=== PATIENT | male | born 1950 | race Two or more races ===

== ENCOUNTER 2017-09-01 05:48 | Inpatient (IN) | payer OTHER ==
[~2017-09-01] VITALS: Ht 175.3 cm; Wt 92.1 kg
[2017-09-01] VITALS (16 sets, daily range): BP systolic 84–149; BP diastolic 59–95
[~2017-09-01 05:48] MED LIST: BYSTOLIC10 MG ORAL; LOSARTAN POTASS50 MG ORAL; MULTAQ400 MG ORAL
[2017-09-01] MEDS ORDERED: ceFAZolin sod 2 GM in D5W 55 ML IVP SCH (06:00)
[2017-09-01] MEDS ORDERED: FOLIC ACID1 M1 PO (06:57)
[2017-09-01] MEDS ORDERED: PREDNISONE5 M4 PO (06:57)
[2017-09-01] MEDS ORDERED: HYDROXYCHLOROQ200 M1 PO (06:57)
[2017-09-01] MEDS ORDERED: LEFLUNOMIDE20 MG PO (06:57)
[2017-09-01] MEDS ORDERED: Vancomycin 1gm inj IVPB ONE (07:03)
[2017-09-01] MEDS ORDERED: DIGOXIN250 MCG ORAL (07:03)
[2017-09-01] MEDS ORDERED: OXYCODONE-ACET1 EAC5 ORAL (07:03)
[2017-09-01] MEDS ORDERED: ALPRAZOLAM1 M2 ORAL (07:03)
[2017-09-01] MEDS ORDERED: CRESTOR10 M1 ORAL (07:03)
[2017-09-01] MEDS ORDERED: EPLERENONE25 MG PO (07:03)
[2017-09-01] MEDS ORDERED: Thrombin 5000 units TOPIC ONE (07:03)
[2017-09-01] MEDS ORDERED: Bupivacaine w/Epi 0.5% 30ml Vial INJ ONE (07:03)
[2017-09-01] MEDS ORDERED: Bacitracin 50000 Units Vial ONE ×2 (07:04→14:51)
[2017-09-01] MEDS ORDERED: Gelfoam Absorbable 1gm powder pkt TOPIC ONE (07:04)
[2017-09-01] MEDS ORDERED: Thrombin 5000 units spray kit TOPIC ONE (07:04)
[2017-09-01] MEDS ORDERED: IRON 21/7 TABL1 EACH PO (07:06)
[2017-09-01] MEDS ORDERED: VITAMIN D400 INTLU ORAL (07:06)
[2017-09-01] MEDS ORDERED: CALCIUM600 M1 PO (07:06)
[2017-09-01] MEDS ORDERED: CENTRUM COMPLE1 EAC1 PO (07:06)
[2017-09-01] MEDS ORDERED: B COMPLEX1 EACH ORAL (07:06)
[2017-09-01] MEDS ORDERED: Labetalol 5mg/ml 20ml vial IV ONE (07:41)
[2017-09-01] MEDS ORDERED: NS Irrig 1000ml ONE (07:41)
[2017-09-01] MEDS ORDERED: Zemuron 50mg/5ml Inj IV ONE (07:41)
[2017-09-01] MEDS ORDERED: Morphine Sulfate 2mg/ml Inj ONE (07:41)
[2017-09-01] MEDS ORDERED: LR 1000ml ONE (07:41)
[2017-09-01] MEDS ORDERED: Neostigmine 1mg/ml 10ml Inj ONE (07:41)
[2017-09-01] MEDS ORDERED: Midazolam 2mg/2ml Inj ONE (07:41)
[2017-09-01] MEDS ORDERED: Hydrocortisone 100mg Inj ONE (07:41)
[2017-09-01] MEDS ORDERED: Propofol 1,000mg/ 100ml btl IV ONE (07:41)
[2017-09-01] MEDS ORDERED: Glycopyrrolate 0.2mg/ml 1ml Vial ONE (07:41)
[2017-09-01] MEDS ORDERED: Sterile Water Irrig 1000ml IRRIG ONE (07:41)
[2017-09-01] MEDS ORDERED: fentaNYL 100 mcg/2 mL IV ONE (08:00)
--- NOTE | 2017-09-01 08:08 | Anethesia Preoperative Eval ---
Anesthesia Pre-op PMH/ROS General Date of Evaluation: Sep 01, 2017 Time of Evaluation: 08:02 Anesthesiologist: Luis Alberto ASA Score: ASA 3 Mallampati Score Class I : Soft palate, uvula, fauces, pillars visible Class II: Soft palate, uvula, fauces visible Class III: Soft palate, base of uvula visible Class IV: Only hard plate visible Mallampati Classification: Class III Surgeon: Blu Diagnosis: Symptomatic lumbar spinal stenosis Surgical Procedure: L4-L5-S1 laminotomy with interbody fusion Anesthesia History: none Family History: no anesthesia problems Allergies: Coded Allergies: No Known Allergies (Unverified , 08/31/17) Medications: see eMAR Past Medical History Cardiovascular: Reports: HTN, arrhythmia - A fib. stable, Denies: CAD, VT, valve dz, other Pulmonary: Denies: asthma, COPD, JAZLYN, other Gastrointestinal/Genitourinary: Reports: GERD, Denies: CRI, ESRD, other Neurologic/Psychiatric: Reports: other - chronic pain Endocrine: Reports: steroids - Chronic steroids for RA, Denies: DM, hypothyroidism, other HEENT: Denies: cataract (L), cataract (R), glaucoma, GAMBELL (L), GAMBELL (R), other Hematology/Immune: Reports: bleeding disorder - off anticoagulants for Sx, Denies: anemia, DVT, other Musculoskeletal/Integumentary: Reports: RA, Denies: OA, DJD, DDD, edema, other Other: obesity PMH Narrative: as above PSxH Narrative: back Sx. Anesthesia Pre-op Phys. Exam Physician Exam Last Vital Signs Date Time Temp Pulse Resp B/P (MAP) Pulse Ox O2 Delivery O2 Flow Rate FiO2 09/01/17 06:41 97.0 63 17 149/95 96 Room Air Constitutional: NAD Neurologic: CN 2-12 intact Cardiovascular: no M/R/G, other - IIR Respiratory: CTA Gastrointestinal: S/NT/ND Airway Exam Mallampati Score: Class II MO: full Neck: stiff ROM: limited Teeth: missing Dentures: no upper, no lower Anesthesia Pre-op A/P Labs see chart Studies Pre-op Studies: EKG - AF Risk Assessment & Plan Assessment: ASA 3 Plan: GA with ETT prone position, neuromonitoring Status Change Before Surgery: No Pre-Antibiotics Drug: Ancef 2 gr. Given Within 1 Hr of Incision: Yes Time Given: 08:35 MAKAYLA DE LA PAZ M.D. Sep 01, 2017 08:08
--- NOTE | 2017-09-01 09:27 | Pre-Procedure Note/Attestation ---
Pre-Procedure Note/Attestation Complete Prior to Procedure Procedure Narrative: revision hardware L5s1 tlif, l45 decompression L3-5 Indications for Procedure Pre-Operative Diagnosis: sp fusion L5s1 with stenosis/instability l3-5 Attestation I attest that I discussed the nature of the procedure; its benefits; risks and complications; and alternatives (and the risks and benefits of such alternatives ), prior to the procedure, with the patient (or the patient's legal artist's representative). I attest that, if there was a reasonable possibility of needing a blood transfusion, the patient (or the patient's legal artist's representative) was given the [facility] standardized written summary, pursuant to the [place] Blood Safety Act ([place] Health and Safety Code # 1645, as amended). I attest that I re-evaluated the patient just prior to the surgery and that there has been no change in the patient's H&P, except as documented below: DEION VELÁSQUEZ Sep 01, 2017 09:27
[2017-09-01] MEDS ORDERED: Acetaminophen (Non formulary) 100 ML IV ONE (11:45)
[2017-09-01] MEDS ORDERED: LR 1000ml 1,000 ML IVLG SCH (14:43)
[2017-09-01] MEDS ORDERED: DiphenhydrAMINE 50mg/ml Inj IVP PRN ×2 (14:45→15:00)
[2017-09-01] MEDS ORDERED: fentaNYL 100 mcg/2 mL IV PRN (14:45)
[2017-09-01] MEDS ORDERED: Ketorolac 30mg Inj IV PRN (14:45)
[2017-09-01] MEDS ORDERED: PCA Education Pamphlet MISC ONE (15:00)
[2017-09-01] MEDS ORDERED: Naloxone 0.4mg/ml Inj IVP PRN (15:00)
[2017-09-01] MEDS ORDERED: Rate Change PCA 1 Each MISC PRN (15:00)
--- NOTE | 2017-09-01 15:27 | Brief Operative Note ---
Immediate Post Operative Note Operative Note Pre-op Diagnosis: sp fusion L5s1 with stenosis/instability l3-5 Procedure: L3-5 redo laminectomy, Tlif R L45, Revision hardware L4-s1 Post-op Diagnosis: same as pre-op Findings: consistent w/pre-op dx studies Surgeon: adryan Ornamental Metal Worker Helper: CALVIN weaver Anesthesiologist: chava Anesthesia: general Specimen: none Complications: none Condition: stable Fluids: 1600 Estimated Blood Loss: volume - 250 Drains: hemovac Implant(s) used?: Yes - spinal elements screws, tlif peek, and signafuse DEION VELÁSQUEZ Sep 01, 2017 15:27
[2017-09-01] MEDS ORDERED: Metoclopramide 10mg/2ml Inj IVP PRN (15:30)
[2017-09-01] MEDS ORDERED: Milk of Magnesia 30ml Ud ORAL PRN (15:30)
[2017-09-01] MEDS: Hydromorphone 0.5mg/0.5ml inj IVP PRN ×4 (16:13→16:54)
[2017-09-01] MEDS: Midazolam 2mg/2ml Inj IVP PRN ×2 (16:13→16:49)
[2017-09-01] MEDS: PCA HYDROmorphone 1mg/ml 30 ML IV PRN (16:22)
--- NOTE | 2017-09-01 16:24 | Diagnostic Imaging Report ---
Indication: Back pain Comparison: None Findings: Fluoroscopic views of the lumbar spine were obtained. Imaging showing 3 level fusion L4-S1 with bilateral pedicle screws fusion rods discectomy corpectomy and laminectomy. Impression: Intraoperative imaging
--- NOTE | 2017-09-01 17:35 | Immediate Post-Op Evaluation ---
Immediate Post-Op Evalulation Immediate Post-Op Evalulation Procedure: Revision of lumbar hardwear.L4-5-S1 laminotomy with decompression and inter Date of Evaluation: Sep 01, 2017 Time of Evaluation: 15:58 IV Fluids: 1600 Blood Products: none Estimated Blood Loss: 250 Urinary Output: 500 Blood Pressure Systolic: 105 Blood Pressure Diastolic: 54 Pulse Rate: 116 Respiratory Rate: 22 O2 Sat by Pulse Oximetry: 99 Temperature (Fahrenheit): 97.8 Pain Score (1-10): 2 Nausea: No Vomiting: No Complications none Patient Status: reacts, patent, extubated, none Hydration Status: adequate MAKAYLA DE LA PAZ M.D. Sep 01, 2017 17:35
[2017-09-01] MEDS: Pericolace tab ORAL SCH (18:00)
[2017-09-01] MEDS: Docusate 100mg cap ORAL SCH (18:00)
--- NOTE | 2017-09-01 18:45 | Cardiology Progress Note ---
Assessment/Plan Assessment/Plan The patient is seen and examined, full consult note is dictated. Objective Last 24 Hour Vital Signs Date Time Temp Pulse Resp B/P (MAP) Pulse Ox O2 Delivery O2 Flow Rate FiO2 09/01/17 18:33 98.8 105 22 104/68 96 Nasal Cannula 2.0 09/01/17 17:35 116 22 99 09/01/17 17:20 111 11 90/70 100 Nasal Cannula 3.0 09/01/17 17:05 108 11 114/87 100 Nasal Cannula 3.0 09/01/17 17:05 11 09/01/17 16:54 111 18 107/72 100 Nasal Cannula 3.0 09/01/17 16:50 18 09/01/17 16:44 115 19 112/71 100 Simple Mask 6.0 09/01/17 16:35 19 09/01/17 16:32 122 12 107/65 100 Simple Mask 6.0 09/01/17 16:22 16 09/01/17 16:20 112 16 100/60 100 Simple Mask 6.0 09/01/17 16:12 116 16 105/82 100 Simple Mask 6.0 09/01/17 16:02 128 15 97/66 100 Simple Mask 6.0 09/01/17 15:57 124 22 111/62 100 Simple Mask 6.0 09/01/17 15:52 97.9 127 27 84/59 100 Simple Mask 6.0 09/01/17 06:41 97.0 63 17 149/95 96 Room Air GABRIELA PEACE Sep 01, 2017 18:45
[2017-09-01] MEDS ORDERED: Metoprolol Succinate XL 25mg tab ORAL SCH (19:00)
[2017-09-01] MEDS: PCA shift volume MISC SCH (19:00)
[2017-09-01] MEDS: D5 1/2NS 1,000 ML IV SCH (20:24)
[2017-09-01] MEDS: ceFAZolin sod 1 GM in D5W 55 ML IV SCH (20:24)
--- NOTE | 2017-09-01 21:08 | History & Physical ---
History and Physical History & Physicial Orders reviewed with the RN. Full Dictation in progress Ana Espitia MD Sep 01, 2017 21:08
[2017-09-01 21:36] LABS: BASOPHILS % (AUTO) 1.9 % (0.0-2.0); EOSINOPHILS % (AUTO) 0.1 % (0.0-3.0); LYMPHOCYTES % (AUTO) 8.5 % (20.0-45.0); MEAN CORPUSCULAR HEMOGLOBIN 30.3 PG (27.0-31.0); MEAN CORPUSCULAR HGB CONC 31.4 G/DL (32.0-36.0); MEAN CORPUSCULAR VOLUME 96 FL (80-99); MONOCYTES % (AUTO) 10.4 % (1.0-10.0); NEUTROPHILS % (AUTO) 79.1 % (45.0-75.0); PLATELET COUNT 115 K/UL (150-450); RED BLOOD COUNT 4.67 M/UL (4.70-6.10); RED CELL DISTRIBUTION WIDTH 13.3 % (11.6-14.8); WHITE BLOOD COUNT 15.4 K/UL (4.8-10.8)
[2017-09-01 21:52] LABS: TROPONIN I < 0.30 ng/mL (<=0.30)
[2017-09-01 21:55] LABS: ALANINE AMINOTRANSFERASE 33 U/L (3-41); ALBUMIN/GLOBULIN RATIO 1.2 (1.0-2.7); ANION GAP 14 (5-15); ASPARTATE AMINO TRANSFERASE 42 U/L (5-40); CALCIUM 8.2 mg/dL (8.6-10.2); CARBON DIOXIDE 23 mEQ/L (20-30); CHLORIDE 102 mEQ/L (98-107); GLOMERULAR FILTRATION RATE > 60 mL/min (>60); HEMOLYSIS 33; POTASSIUM 4.4 mEQ/L (3.4-4.9); SODIUM 139 mEQ/L (135-145); TOTAL PROTEIN 5.5 g/dL (6.6-8.7)
[2017-09-02] VITALS: BP 145/79
[2017-09-02] MEDS: Losartan 50mg tab ORAL SCH ×3 (00:15→21:59)
--- NOTE | 2017-09-02 00:31 | Operative Note - Dictated ---
DATE OF OPERATION: 09/01/2017 SURGEON: Ankit Hurt M.D. BUS PERSON DISHWASHER: Rita Silva ANESTHESIOLOGIST: Rodolfo Sahu M.D. ANESTHESIA TYPE: General endotracheal anesthesia. PREOPERATIVE DIAGNOSES: 1. Status post spinal fusion, anterior and posterior L5-S1. 2. Severe spinal stenosis L4-L5 and to a lesser extent L3-L4. 3. Instability at L4-L5 with broad-based disk herniation. 4. Adjacent level arthrosis L4-L5 and to a lesser extent L3-L4. POSTOPERATIVE DIAGNOSES: 1. Status post spinal fusion, anterior and posterior L5-S1. 2. Severe spinal stenosis L4-L5 and to a lesser extent L3-L4. 3. Instability at L4-L5 with broad-based disk herniation. 4. Adjacent level arthrosis L4-L5 and to a lesser extent L3-L4. PROCEDURES: 1. Complete laminectomy of L3, L4, and superior half of L5 (redo status post prior laminectomy L5 partial). 2. Removal of hardware L5-S1. 3. Complete facetectomy L4-L5 right side and placement of interbody fusion device (TLIF) L4-L5. 4. Placement of structural graft/PEEK cage L4-L5 through a right-sided foraminal approach. 5. Posterior spinal segmental fixation and placement of hardware pedicle screws (spinal elements) L4, L5, and S1 bilaterally. 6. Use of local autograft for fusion as well as use of Signafuse. 7. Use of operating microscope. 8. Neurodiagnostic monitoring. 9. Pedicle screw stimulation. OPERATIVE INDICATIONS: The patient is a very pleasant gentleman with fairly significant and intractable back pain with radiation down right worse than left lower extremity. MRIs confirmed severe spinal stenosis L4-L5 and L3-L4. Surgical intervention was recommended in the form of extension of instrumentation and fusion at L4-L5 and decompression at L3 through L5. RISK NOTE: The patient was explained in detail risks and benefits of surgery to include, but not be limited to those of bleeding, infection, damage to nerves, vessels, tendons, anesthetic risk, allergic reaction, aspiration, and possibly . The patient understood and wished to proceed. OPERATIVE PROCEDURE IN DETAIL: The patient was taken to the operating suite. After general endotracheal anesthesia was obtained, Becker catheter was placed. The patient was turned prone onto a radiolucent table. Back was prepped and draped in usual sterile fashion. Fluoroscopically, the levels were marked. At this point, the prior incision was infiltrated with Marcaine with epinephrine. Incision was carried out from L3 through S1. Extensive scarring was encountered. Scar tissue was mobilized at the L5-S1 level. A L3-L4 and L4-L5 subperiosteal dissection was carried out. Prior hardware was identified. Multiple attempts were made to remove the locking knots securing the micah to the screws. The locking knot at L5 had cold welded and resulted in fracture of the screwdrivers within the locking cap screw. This occurred at both L5 level. The locking cap on S1 on the right side was removed. It was also cold welded on the left at S1. We had no choice at this point to use a high-speed drill (carbide tip) and amputate the rods between L5 and S1. At this point, with a locking Vise-Director Of Partner [employer] wrench, I was able to back out the screws at L5 and S1 bilaterally. At this point, operating microscope was brought into place. Complete laminectomy was performed at L4 and superior one-third of the L5 using standard technique by drilling out the lamina and removing the ligamentum flavum and scar tissue in a piecemeal fashion. Once the decompression at L4-L5 was complete, a complete facetectomy was performed on the right side. The disk herniation was identified. There was a disk fragment, which was removed in a piecemeal fashion. The nerve roots were gently retracted medially. A scalpel was used to incise the disk posterolaterally and with the use of multiple stefano, we were able to remove the disk material at L4-L5. An 11 mm spacer was chosen after the complete diskectomy and endplate preparation was completed using angled curettes and pituitary. At this juncture, the disk space was prepared. I placed approximately 4 mL of Signafuse as well as local autograft bone from the laminectomy that was performed. The spinal elements curved TLIF cage was then also packed with Signafuse and delivered into the disk space under fluoroscopic guidance. At this point, I proceeded to replace the screws at L5. There was a partial fracture of the pedicle at the right L5 and therefore, I elected to replace the screws at L5 and S1. This was performed bilaterally. Copious irrigation was performed. Pedicle screw stimulation demonstrated good impedance above 20. The pedicle screws at L4 were also placed using standard technique and using standard anatomic landmarks by drilling, tapping, and applying the appropriate sized 6.5 mm screws. Once all screws were placed and tested with neurodiagnostic monitoring, the appropriate sized rods were applied and locking knots were applied. This was all torqued to the appropriate level. At this point, we went back under the microscope and completed the laminectomy of L3. Additional bone graft was placed posterolaterally at L4, L5, and S1. Care was taken to avoid any debris or bone graft material into the laminectomy or TLIF site. At this point, copious irrigation was performed. A medium-size Hemovac drain was placed deep to the fascia and fascia was repaired using #1 Vicryl subcutaneous closure using 2-0 Vicryl. Dermabond and sterile dressing was applied. At the time of this dictation, the patient was awaiting extubation. [facility] Rocio Hurt DR: CHIRAG JOB#: [id number] CC: BRETT
[2017-09-02] MEDS: ceFAZolin sod 1 GM in D5W 55 ML IV SCH ×2 (03:50→12:37)
[2017-09-02 04:00] VITALS: BP 142/86
[2017-09-02] MEDS: D5 1/2NS 1,000 ML IV SCH ×2 (06:23→17:46)
--- NOTE | 2017-09-02 06:53 | 48 Hour Post Anesthesia Eval ---
Post Anesthesia Evaluation Procedure: Revision of lumbar hardwear.L4-5-S1 laminotomy with decompression and inter Date of Evaluation: Sep 02, 2017 Time of Evaluation: 06:31 Blood Pressure Systolic: 142 0: 86 Pulse Rate: 82 Respiratory Rate: 18 Temperature (Fahrenheit): 98.2 O2 Sat by Pulse Oximetry: 100 Airway: patent Nausea: No Vomiting: No Pain Intensity: 3 Hydration Status: adequate Cardiopulmonary Status: Stable Mental Status/LOC: patient returned to baseline Follow-up Care/Observations: 0 Post-Anesthesia Complications: 0 Follow-up care needed: N/A Jerry Lutz MD Sep 02, 2017 06:53
[2017-09-02] MEDS: PCA shift volume MISC SCH ×2 (08:00→19:00)
[2017-09-02 08:41] VITALS: BP 149/90
--- NOTE | 2017-09-02 08:47 | Consultation ---
DATE OF CONSULTATION: 09/01/2017 CARDIOLOGY CONSULTATION REFERRING PHYSICIAN: Ana Espitia M.D. Reason For Consultation: Management of atrial fibrillation, postoperative. History Of Present Illness: The patient is a very pleasant 67-year-old gentleman, who underwent lumbar spine surgical repair by Dr. Hurt on 09/01/2017. The patient has history of permanent atrial fibrillation, on Bystolic, digoxin, and Eliquis as well as history of hypertension as well as rheumatoid arthritis, on steroid therapy as well as leflunomide. The patient also was on Multaq for possibly maintenance of sinus rhythm. A 12-lead electrocardiogram prior to surgery showed atrial fibrillation with controlled ventricular response. In the postoperative period, the patient complains of being thirsty. bus driver/monitor reveals atrial fibrillation with rapid ventricular response. The patient denies any prior history of coronary artery disease or congestive heart failure. PAST MEDICAL HISTORY: 1. Atrial fibrillation. 2. Hypertension. 3. Rheumatoid arthritis. Past Surgical History: Status post lumbar spine surgical repair, postoperative day #0. Medications: List of medications including Bystolic 20 mg p.o. once daily, digoxin 0.25 mg p.o. daily, Eliquis 5 mg p.o. twice daily, folic acid 1 mg p.o. daily, leflunomide 20 mg p.o. daily, losartan 50 mg p.o. q.12 h., Multaq 400 mg p.o. daily, and rosuvastatin 10 mg p.o. nightly. There was also Plaquenil and prednisone, the doses of which are unknown. ALLERGIES: No known drug allergies. Review Of Systems: HEENT: Denies any headache, diplopia, or blurry vision. Constitutional: Complains of pain in the postoperative period, complaining of being thirsty. Denies any fever, chills, or night sweats. Cardiovascular: Denies any chest pain, shortness breath, PND, orthopnea, or leg swelling. Pulmonary: Denies any cough, hemoptysis, or wheezing. Gastrointestinal: Denies any nausea, vomiting, diarrhea, constipation, abdominal pain, or GI bleed. Genitourinary: Denies any hematuria, dysuria, or incontinence. Neurological: Denies any motor dysfunction, sensory deficit, numbness, or altered speech. PHYSICAL EXAMINATION: Vital Signs: Blood pressure is 104/68, heart rate of 105, respirations of 22, O2 saturation of 96% on nasal cannula two liters, and temperature 98.9 degrees Fahrenheit. General: The patient is a very pleasant 67-year-old gentleman, in the postoperative period, in no apparent respiratory distress. HEENT: Periorbital edema. Otherwise, pupils are equal, round, and reactive to light and accommodation. Extraocular muscles intact. Neck: No jugular venous distention. No carotid bruit. Carotid upstrokes 2+ bilaterally. CVS: Normal S1 and S2. Irregularly irregular rhythm. Tachycardic. No murmurs, gallops, or rubs. PMI is at fourth intercostal space in the midclavicular line. LUNGS: Clear to auscultation bilaterally. Abdomen: Soft, nontender, and nondistended. No hepatosplenomegaly. Positive bowel sounds. EXTREMITIES: No evidence of edema, clubbing, or cyanosis. Laboratory and diagnostic Data: Laboratory findings, prior to surgery, the patient had some blood test, which is as follows. Glucose is 97, 16, creatinine 0.87, sodium 144, potassium is 4.8, chloride 105, bicarbonate 31, and calcium is 9.5. WBC is 12.2, hemoglobin of 16.4, hematocrit of 49.3, and platelet count 144,000. A 12-lead electrocardiogram, atrial fibrillation with heart rate of 73. This ECG prior to surgery does show left axis deviation, poor R wave progression suggestive of possible old anteroseptal WI. Chest x-ray showed cardiomegaly without cardiac decompensation or other acute process. Assessment And Plan: The patient is a very pleasant 67-year-old gentleman, seen in Cardiology consultation at the request of Dr. Espitia. 1. Atrial fibrillation, it is not clear whether this is paroxysmal versus permanent. The patient was on Multaq, however, currently in atrial fibrillation. For rate control, the patient was also on Bystolic and digoxin. 2. I would like to resume Bystolic 10 mg p.o. daily, an up titrated dose based on the patient's blood pressure response and heart rate response. 3. Anticoagulation is contraindicated in the very early postoperative period for this kind of surgeries. 4. We will resume anticoagulation once it is safe to do so. A 12-lead electrocardiogram will be done for this postoperative period. 5. History of hypertension. Currently, the patient's blood pressure is borderline low in the postoperative period. This could be because of the narcotic use. 6. We will continue to monitor the patient's blood pressure in the next 24 to 48 hours and make recommendations accordingly. 7. History of rheumatoid arthritis. 8. History of lumbar spine surgery, postoperative day #0. I would like to thank, Dr. Espitia, for allowing me to participate in the care of this patient. Asif Ratliff M.D. DR: Gato JOB#: [id number] CC:
[2017-09-02] MEDS: Docusate 100mg cap ORAL SCH (09:00)
[2017-09-02] MEDS: Pericolace tab ORAL SCH ×3 (09:27→17:59)
--- NOTE | 2017-09-02 09:44 | Orthopedic Spine Progress Note ---
Ortho Spine - Progress Note Subjective Symptoms: c/o post-op back pain, improved - as compared to pre-op Objective Vital Signs: Last 24 Hour Vital Signs Date Time Temp Pulse Resp B/P (MAP) Pulse Ox O2 Delivery O2 Flow Rate FiO2 09/02/17 09:26 149/90 09/02/17 09:26 93 09/02/17 08:41 98.1 93 18 149/90 96 Nasal Cannula 2.0 09/02/17 06:53 82 18 100 09/02/17 04:00 91 09/02/17 04:00 18 09/02/17 04:00 98.2 82 20 142/86 100 Nasal Cannula 2.0 09/02/17 00:15 145/79 09/02/17 00:00 92 09/02/17 00:00 18 09/02/17 00:00 98.4 98 22 145/79 97 Room Air 09/01/17 22:51 98.1 96 20 145/83 Room Air 09/01/17 20:00 98.2 103 20 125/72 97 Room Air 09/01/17 20:00 18 09/01/17 20:00 145 09/01/17 20:00 98.2 20 125/72 Nasal Cannula 2.0 09/01/17 18:40 18 09/01/17 18:33 98.8 105 22 104/68 96 Nasal Cannula 2.0 09/01/17 18:25 15 09/01/17 18:05 18 09/01/17 17:50 98.9 113 15 104/64 100 Nasal Cannula 3.0 09/01/17 17:35 116 25 94/62 100 Nasal Cannula 3.0 09/01/17 17:35 18 09/01/17 17:35 116 22 99 09/01/17 17:20 111 11 90/70 100 Nasal Cannula 3.0 09/01/17 17:20 98.8 09/01/17 17:05 108 11 114/87 100 Nasal Cannula 3.0 09/01/17 17:05 11 09/01/17 16:54 111 18 107/72 100 Nasal Cannula 3.0 09/01/17 16:52 98.8 09/01/17 16:50 18 09/01/17 16:44 115 19 112/71 100 Simple Mask 6.0 09/01/17 16:35 19 09/01/17 16:32 122 12 107/65 100 Simple Mask 6.0 09/01/17 16:22 16 09/01/17 16:20 112 16 100/60 100 Simple Mask 6.0 09/01/17 16:12 116 16 105/82 100 Simple Mask 6.0 09/01/17 16:02 128 15 97/66 100 Simple Mask 6.0 09/01/17 15:57 124 22 111/62 100 Simple Mask 6.0 09/01/17 15:52 97.9 127 27 84/59 100 Simple Mask 6.0 I&O: Intake and Output 09/02/17 09/03/17 19:00 07:00 Intake Total 100 ml Balance 100 ml IV Total 100 ml Wound: clean Drains: hemovac Neuro Status: abnormal - rle weaker than LLE, but better than before surgery Assessment Procedure Performed: L3-5 redo laminectomy, Tlif R L45, Revision hardware L4-s1 Plan Plan: PT, pain management, continue antibiotics, continue drain Additional Comments: hold anticooagulation DEION VELÁSQUEZ Sep 02, 2017 09:44
[2017-09-02 10:15] LABS: BASOPHILS % (AUTO) 1.4 % (0.0-2.0); EOSINOPHILS % (AUTO) 1.1 % (0.0-3.0); LYMPHOCYTES % (AUTO) 12.6 % (20.0-45.0); MEAN CORPUSCULAR HEMOGLOBIN 32.2 PG (27.0-31.0); MEAN CORPUSCULAR HGB CONC 33.8 G/DL (32.0-36.0); MEAN CORPUSCULAR VOLUME 95 FL (80-99); MEAN PLATELET VOLUME 11.5 FL (6.5-10.1); MONOCYTES % (AUTO) 8.5 % (1.0-10.0); NEUTROPHILS % (AUTO) 76.4 % (45.0-75.0); PLATELET COUNT 135 K/UL (150-450); RED BLOOD COUNT 4.62 M/UL (4.70-6.10); RED CELL DISTRIBUTION WIDTH 13.2 % (11.6-14.8); WHITE BLOOD COUNT 13.7 K/UL (4.8-10.8)
[2017-09-02] MEDS ORDERED: HYDROmorphone 1mg/ml Carpuject SUBQ PRN (10:30)
[2017-09-02] MEDS ORDERED: ALPRAZolam 0.5mg tab ORAL PRN (10:30)
[2017-09-02 12:00] VITALS: BP 115/62
--- NOTE | 2017-09-02 14:06 | General Progress Note ---
Assessment/Plan Status: stable Assessment/Plan 1- Lumbar spondylosis, S/P surgery 2- Afib 3- HTN 4- pain managemt 5- anxiety/Depression Plan: discussed with Cardiology, Dr Ratliff agree with current management. hold anticoagulation for now Subjective ROS Limited/Unobtainable: No Allergies: Coded Allergies: No Known Allergies (Unverified , 08/31/17) Objective Last 24 Hour Vital Signs Date Time Temp Pulse Resp B/P (MAP) Pulse Ox O2 Delivery O2 Flow Rate FiO2 09/02/17 09:26 149/90 09/02/17 09:26 93 09/02/17 08:41 98.1 93 18 149/90 96 Nasal Cannula 2.0 09/02/17 06:53 82 18 100 09/02/17 04:00 91 09/02/17 04:00 18 09/02/17 04:00 98.2 82 20 142/86 100 Nasal Cannula 2.0 09/02/17 00:15 145/79 09/02/17 00:00 92 09/02/17 00:00 18 09/02/17 00:00 98.4 98 22 145/79 97 Room Air 09/01/17 22:51 98.1 96 20 145/83 Room Air 09/01/17 20:00 98.2 103 20 125/72 97 Room Air 09/01/17 20:00 18 09/01/17 20:00 145 09/01/17 20:00 98.2 20 125/72 Nasal Cannula 2.0 09/01/17 18:40 18 09/01/17 18:33 98.8 105 22 104/68 96 Nasal Cannula 2.0 09/01/17 18:25 15 09/01/17 18:05 18 09/01/17 17:50 98.9 113 15 104/64 100 Nasal Cannula 3.0 09/01/17 17:35 116 25 94/62 100 Nasal Cannula 3.0 09/01/17 17:35 18 09/01/17 17:35 116 22 99 09/01/17 17:20 111 11 90/70 100 Nasal Cannula 3.0 09/01/17 17:20 98.8 09/01/17 17:05 108 11 114/87 100 Nasal Cannula 3.0 09/01/17 17:05 11 09/01/17 16:54 111 18 107/72 100 Nasal Cannula 3.0 09/01/17 16:52 98.8 09/01/17 16:50 18 09/01/17 16:44 115 19 112/71 100 Simple Mask 6.0 09/01/17 16:35 19 09/01/17 16:32 122 12 107/65 100 Simple Mask 6.0 09/01/17 16:22 16 09/01/17 16:20 112 16 100/60 100 Simple Mask 6.0 09/01/17 16:12 116 16 105/82 100 Simple Mask 6.0 09/01/17 16:02 128 15 97/66 100 Simple Mask 6.0 09/01/17 15:57 124 22 111/62 100 Simple Mask 6.0 09/01/17 15:52 97.9 127 27 84/59 100 Simple Mask 6.0 Intake and Output 09/02/17 09/03/17 19:00 07:00 Intake Total 100 ml Output Total 80 ml Balance 20 ml IV Total 100 ml Drainage Total 80 ml Laboratory Tests 09/01/17 21:20: White Blood Count 15.4H, Red Blood Count 4.67L, Hemoglobin 14.1L, Hematocrit 45.0, Mean Corpuscular Volume 96, Mean Corpuscular Hemoglobin 30.3, Mean Corpuscular Hemoglobin Concent 31.4L, Red Cell Distribution Width 13.3, Platelet Count 115L, Mean Platelet Volume 11.0H, Neutrophils (%) (Auto) 79.1H, Lymphocytes (%) (Auto) 8.5L, Monocytes (%) (Auto) 10.4H, Eosinophils (%) (Auto) 0.1, Basophils (%) (Auto) 1.9, Sodium Level 139, Potassium Level 4.4, Chloride Level 102, Carbon Dioxide Level 23, Anion Gap 14, Blood Urea Nitrogen 18, Creatinine 1.0, Estimat Glomerular Filtration Rate > 60, Glucose Level 140H, Calcium Level 8.2L, Total Bilirubin 0.6, Aspartate Amino Transf (AST/SGOT) 42H, Alanine Aminotransferase (ALT/SGPT) 33, Alkaline Phosphatase 70, Troponin I < 0.30, Total Protein 5.5L, Albumin 3.0L, Globulin 2.5, Albumin/Globulin Ratio 1.2 09/02/17 10:00: White Blood Count 13.7H, Red Blood Count 4.62L, Hemoglobin 14.9, Hematocrit 44.0 , Mean Corpuscular Volume 95, Mean Corpuscular Hemoglobin 32.2H, Mean Corpuscular Hemoglobin Concent 33.8, Red Cell Distribution Width 13.2, Platelet Count 135L, Mean Platelet Volume 11.5H, Neutrophils (%) (Auto) 76.4H, Lymphocytes (%) (Auto) 12.6L, Monocytes (%) (Auto) 8.5, Eosinophils (%) (Auto) 1.1, Basophils (%) (Auto) 1.4 Height (Feet): 5 Height (Inches): 9.00 Weight (Pounds): 203 General Appearance: no apparent distress EENT: PERRL/EOMI Neck: supple Cardiovascular: normal rate Respiratory/Chest: chest wall non-tender Abdomen: soft Extremities: non-tender Neurologic: steel checker II-XII grossly normal Ana Espitia MD Sep 02, 2017 14:06
[2017-09-02 15:51] VITALS: BP 145/78
[2017-09-02 20:00] VITALS: BP 142/76
[2017-09-02] MEDS: PCA HYDROmorphone 1mg/ml 30 ML IV PRN (21:26)
--- NOTE | 2017-09-02 23:16 | Cardiology Progress Note ---
Assessment/Plan Assessment/Plan 1. Atrial fibrillation, continue Bystolic and digoxin for rate control, anticoagulation still on hold. 2. History of hypertension, up-titrate Bystolic to keep BP <140/90 mmHg. 3. History of rheumatoid arthritis. 4 History of lumbar spine surgery, postoperative day #1. Subjective Subjective Atrial fibrillation at 79. Denies chest pain or SOB. Objective Last 24 Hour Vital Signs Date Time Temp Pulse Resp B/P (MAP) Pulse Ox O2 Delivery O2 Flow Rate FiO2 09/02/17 21:59 142/76 09/02/17 20:00 99.1 85 18 142/76 96 Room Air 09/02/17 20:00 18 09/02/17 16:21 97.9 18 96 Nasal Cannula 2.0 09/02/17 16:00 95 09/02/17 15:51 20 145/78 09/02/17 15:13 20 09/02/17 12:00 98.2 87 20 115/62 95 Nasal Cannula 2.0 09/02/17 11:47 79 09/02/17 09:26 149/90 09/02/17 09:26 93 09/02/17 08:41 98.1 93 18 149/90 96 Nasal Cannula 2.0 09/02/17 08:08 88 09/02/17 08:00 20 09/02/17 06:53 82 18 100 09/02/17 04:00 91 09/02/17 04:00 18 09/02/17 04:00 98.2 82 20 142/86 100 Nasal Cannula 2.0 09/02/17 00:15 145/79 09/02/17 00:00 92 09/02/17 00:00 18 09/02/17 00:00 98.4 98 22 145/79 97 Room Air Intake and Output 09/02/17 09/03/17 19:00 07:00 Intake Total 1655 ml Output Total 620 ml Balance 1035 ml Intake Oral 600 ml IV Total 1055 ml Output Urine Total 500 ml Drainage Total 120 ml Laboratory Tests Test 09/02/17 10:00 White Blood Count 13.7 K/UL (4.8-10.8) H Red Blood Count 4.62 M/UL (4.70-6.10) L Hemoglobin 14.9 G/DL (14.2-18.0) Hematocrit 44.0 % (42.0-52.0) Mean Corpuscular Volume 95 FL (80-99) Mean Corpuscular Hemoglobin 32.2 PG (27.0-31.0) H Mean Corpuscular Hemoglobin Concent 33.8 G/DL (32.0-36.0) Red Cell Distribution Width 13.2 % (11.6-14.8) Platelet Count 135 K/UL (150-450) L Mean Platelet Volume 11.5 FL (6.5-10.1) H Neutrophils (%) (Auto) 76.4 % (45.0-75.0) H Lymphocytes (%) (Auto) 12.6 % (20.0-45.0) L Monocytes (%) (Auto) 8.5 % (1.0-10.0) Eosinophils (%) (Auto) 1.1 % (0.0-3.0) Basophils (%) (Auto) 1.4 % (0.0-2.0) Objective HEENT: Periorbital edema. Otherwise, pupils are equal, round, and reactive to light and accommodation. Extraocular muscles intact. Neck: No jugular venous distention. No carotid bruit. Carotid upstrokes 2+ bilaterally. CVS: Normal S1 and S2. Irregularly irregular rhythm. Tachycardic. No murmurs, gallops, or rubs. PMI is at fourth intercostal space in the midclavicular line. LUNGS: Clear to auscultation bilaterally. Abdomen: Soft, nontender, and nondistended. No hepatosplenomegaly. Positive bowel sounds. EXTREMITIES: No evidence of edema, clubbing, or cyanosis. GABRIELA PEACE Sep 02, 2017 23:16
[2017-09-03] VITALS: BP 139/66
--- NOTE | 2017-09-03 | History and Physical Report ---
DATE OF ADMISSION: 09/01/2017 SOURCE OF INFORMATION: Patient and EMR. History Of Present Illness: The patient is a 67-year-old white male with a history of lumbar spondylosis status post surgery. At the time of evaluation, the patient denies any chest pain, any shortness of breath, any abnormal bleeding. The patient has [id number] pain in the back. Past Medical History: Anxiety, atrial fibrillation, hypertension, hyperlipidemia. PAST SURGICAL HISTORY: Status post lumbar spine surgery. Hospital Medications: Including but not limited to Bystolic, digoxin 0.25 mg, Eliquis liquid 5 mg p.o. b.i.d., folic acid 1 mg. ALLERGIES: NKDA. Social History: The patient denies history of illicit drug abuse or alcohol abuse. FAMILY HISTORY: Reviewed and noncontributory. PHYSICAL EXAMINATION: Vital Signs: Blood pressure 140/80, temperature 98.2 degrees, pulse oximetry 98% on room air, pulse rate 95-110, respiratory rate 18. HEAD AND NECK: Normocephalic. CHEST: Clear to auscultation. HEART: S1 and S2. Regular rate and rhythm. ABDOMEN: Soft. No organomegaly. Musculoskeletal: Decreased range of motion in the lower back status post surgery. NEUROLOGY: The patient is awake, alert, and oriented x3. Laboratory Data: Laboratory dated 09/01/2017 shows WBC 16.4, hemoglobin 14.1, platelets 115,000. Sodium 139, potassium 4.4, BUN 18, and creatinine 1, glucose 140. AST 42, ALT 33. ASSESSMENT AND PLAN: 1. Lumbar spondylosis and prior surgery, status post revision surgery. 2. Atrial fibrillation, controlled rate. Continue with the current medications. 3. Hypertension, fairly controlled. 4. Anxiety and depression. 5. Gastrointestinal and deep vein thrombosis prophylaxis. Plan Of Care: We will continue with the home medications. Continue with the current pain management. Cardiology will be consulted. Dr. Phillips and Dr. Benites, thanks for giving me the opportunity to participate in this patient's care. Ana Espitia M.D. DR: Cricket JOB#: [id number] CC: BRETT
[2017-09-03] MEDS: D5 1/2NS 1,000 ML IV SCH ×3 (02:06→21:03)
[2017-09-03 04:00] VITALS: BP 128/74
[2017-09-03 05:11] LABS: BASOPHILS % (AUTO) 1.4 % (0.0-2.0); EOSINOPHILS % (AUTO) 0.9 % (0.0-3.0); LYMPHOCYTES % (AUTO) 11.5 % (20.0-45.0); MEAN CORPUSCULAR HEMOGLOBIN 32.1 PG (27.0-31.0); MEAN CORPUSCULAR HGB CONC 34.3 G/DL (32.0-36.0); MEAN CORPUSCULAR VOLUME 93 FL (80-99); MEAN PLATELET VOLUME 10.7 FL (6.5-10.1); MONOCYTES % (AUTO) 8.4 % (1.0-10.0); NEUTROPHILS % (AUTO) 77.8 % (45.0-75.0); PLATELET COUNT 118 K/UL (150-450); RED BLOOD COUNT 4.09 M/UL (4.70-6.10); RED CELL DISTRIBUTION WIDTH 12.8 % (11.6-14.8); WHITE BLOOD COUNT 13.5 K/UL (4.8-10.8)
[2017-09-03 05:28] LABS: ANION GAP 10 (5-15); CALCIUM 8.2 mg/dL (8.6-10.2); CARBON DIOXIDE 26 mEQ/L (20-30); CHLORIDE 102 mEQ/L (98-107); CREATININE 0.5 mg/dL (0.7-1.2); GLOMERULAR FILTRATION RATE > 60 mL/min (>60); HEMOLYSIS 12; POTASSIUM 3.4 mEQ/L (3.4-4.9); SODIUM 138 mEQ/L (135-145)
[2017-09-03] MEDS: PCA shift volume MISC SCH (07:00)
[2017-09-03 08:00] VITALS: BP 130/77
--- NOTE | 2017-09-03 08:58 | General Progress Note ---
Assessment/Plan Assessment/Plan 1. Lumbar spondylosis and prior surgery, status post revision surgery. 2. Atrial fibrillation, controlled rate. Continue with the current medications. 3. Hypertension, fairly controlled. 4. Anxiety and depression. 5. Leukocytosis: likely reactive, post op. no evidence of active infection 5. Gastrointestinal and deep vein thrombosis prophylaxis. Plan: hold anticoagulation for now Current surgical management per Dr Phillips Subjective ROS Limited/Unobtainable: No HEENT: Reports: no symptoms Cardiovascular: Reports: no symptoms Allergies: Coded Allergies: No Known Allergies (Unverified , 08/31/17) Objective Last 24 Hour Vital Signs Date Time Temp Pulse Resp B/P (MAP) Pulse Ox O2 Delivery O2 Flow Rate FiO2 09/03/17 08:00 98.1 97 20 130/77 97 Room Air 09/03/17 07:57 20 09/03/17 04:00 20 09/03/17 04:00 99.9 90 20 128/74 98 Room Air 09/03/17 04:00 89 09/03/17 00:00 94 09/03/17 00:00 98.2 94 20 139/66 97 Room Air 09/03/17 00:00 20 09/02/17 21:59 142/76 09/02/17 20:00 99.1 85 18 142/76 96 Room Air 09/02/17 20:00 18 09/02/17 20:00 75 09/02/17 16:21 97.9 18 96 Nasal Cannula 2.0 09/02/17 16:00 95 09/02/17 15:51 20 145/78 09/02/17 15:13 20 09/02/17 12:00 98.2 87 20 115/62 95 Nasal Cannula 2.0 09/02/17 11:47 79 09/02/17 09:26 149/90 09/02/17 09:26 93 Laboratory Tests 09/02/17 10:00: White Blood Count 13.7H, Red Blood Count 4.62L, Hemoglobin 14.9, Hematocrit 44.0 , Mean Corpuscular Volume 95, Mean Corpuscular Hemoglobin 32.2H, Mean Corpuscular Hemoglobin Concent 33.8, Red Cell Distribution Width 13.2, Platelet Count 135L, Mean Platelet Volume 11.5H, Neutrophils (%) (Auto) 76.4H, Lymphocytes (%) (Auto) 12.6L, Monocytes (%) (Auto) 8.5, Eosinophils (%) (Auto) 1.1, Basophils (%) (Auto) 1.4 09/03/17 04:45: White Blood Count 13.5H, Red Blood Count 4.09L, Hemoglobin 13.1L, Hematocrit 38.3L, Mean Corpuscular Volume 93, Mean Corpuscular Hemoglobin 32.1H, Mean Corpuscular Hemoglobin Concent 34.3, Red Cell Distribution Width 12.8, Platelet Count 118L, Mean Platelet Volume 10.7H, Neutrophils (%) (Auto) 77.8H, Lymphocytes (%) (Auto) 11.5L, Monocytes (%) (Auto) 8.4, Eosinophils (%) (Auto) 0.9, Basophils (%) (Auto) 1.4, Sodium Level 138, Potassium Level 3.4, Chloride Level 102, Carbon Dioxide Level 26, Anion Gap 10, Blood Urea Nitrogen 8, Creatinine 0.5L, Estimat Glomerular Filtration Rate > 60, Glucose Level 132H, Calcium Level 8.2L Height (Feet): 5 Height (Inches): 9.00 Weight (Pounds): 203 General Appearance: no apparent distress EENT: PERRL/EOMI Neck: supple Cardiovascular: normal rate Respiratory/Chest: lungs clear Abdomen: soft Extremities: other - Limied ROM of lumbar spine, post op. Neurologic: oriented x 3 Ana Espitia MD Sep 03, 2017 08:58
[2017-09-03] MEDS: Losartan 50mg tab ORAL SCH ×2 (09:02→21:03)
[2017-09-03 12:00] VITALS: BP 126/70
[2017-09-03] MEDS ORDERED: Norco 5mg/325mg tab ORAL PRN (15:00)
[2017-09-03] MEDS ORDERED: Norco 7.5mg/325mg tab ORAL PRN ×2 (15:00)
[2017-09-03 16:00] VITALS: BP 145/82
--- NOTE | 2017-09-03 16:17 | Orthopedic Spine Progress Note ---
Ortho Spine - Progress Note Subjective Symptoms: c/o post-op back pain, improved - as compared to pre-op Objective Vital Signs: Last 24 Hour Vital Signs Date Time Temp Pulse Resp B/P (MAP) Pulse Ox O2 Delivery O2 Flow Rate FiO2 09/03/17 14:50 20 09/03/17 12:00 79 09/03/17 12:00 20 09/03/17 12:00 98.3 67 20 126/70 98 Room Air 09/03/17 09:02 130/77 09/03/17 09:00 97 09/03/17 08:00 90 09/03/17 08:00 98.1 97 20 130/77 97 Room Air 09/03/17 07:57 20 09/03/17 04:00 20 09/03/17 04:00 99.9 90 20 128/74 98 Room Air 09/03/17 04:00 89 09/03/17 00:00 94 09/03/17 00:00 98.2 94 20 139/66 97 Room Air 09/03/17 00:00 20 09/02/17 21:59 142/76 09/02/17 20:00 99.1 85 18 142/76 96 Room Air 09/02/17 20:00 18 09/02/17 20:00 75 09/02/17 16:21 97.9 18 96 Nasal Cannula 2.0 I&O: Intake and Output 09/03/17 09/04/17 19:00 07:00 Intake Total 400 ml Balance 400 ml IV Total 400 ml Wound: clean, intact Drains: hemovac Neuro Status: stable Assessment Procedure Performed: L3-5 redo laminectomy, Tlif R L45, Revision hardware L4-s1 Plan Plan: PT, d/c antibiotics, d/c drain, discharge plan DEION VELÁSQUEZ Sep 03, 2017 16:17
[2017-09-03] MEDS: Pericolace tab ORAL SCH (17:30)
[2017-09-03] MEDS: oxyCODONE 5mg IR tab ORAL PRN ×2 (17:31→21:02)
[2017-09-03 20:00] VITALS: BP 143/96
--- NOTE | 2017-09-03 22:12 | Cardiology Progress Note ---
Assessment/Plan Assessment/Plan 1. Atrial fibrillation, continue Bystolic and digoxin for rate control, anticoagulation still on hold. 2. History of hypertension, up-titrate Bystolic to keep BP <140/90 mmHg. 3. History of rheumatoid arthritis. 4 History of lumbar spine surgery, postoperative day #2. Subjective Subjective Atrial fibrillation at 76.. Denies chest pain or SOB. Objective Last 24 Hour Vital Signs Date Time Temp Pulse Resp B/P (MAP) Pulse Ox O2 Delivery O2 Flow Rate FiO2 09/03/17 21:03 143/96 09/03/17 20:00 97.7 74 21 143/96 96 Room Air 09/03/17 16:00 77 09/03/17 16:00 98.0 98 20 145/82 98 Room Air 09/03/17 14:50 20 09/03/17 12:00 79 09/03/17 12:00 20 09/03/17 12:00 98.3 67 20 126/70 98 Room Air 09/03/17 09:02 130/77 09/03/17 09:00 97 09/03/17 08:00 90 09/03/17 08:00 98.1 97 20 130/77 97 Room Air 09/03/17 07:57 20 09/03/17 04:00 20 09/03/17 04:00 99.9 90 20 128/74 98 Room Air 09/03/17 04:00 89 09/03/17 00:00 94 09/03/17 00:00 98.2 94 20 139/66 97 Room Air 09/03/17 00:00 20 Intake and Output 09/03/17 09/04/17 19:00 07:00 Intake Total 1000 ml Output Total 20 ml Balance 980 ml IV Total 1000 ml Drainage Total 20 ml 2D Echo: LVEF ~55-60, Mod LVH, HUEY, Mild MR, RVSP 15 mmHg Laboratory Tests Test 09/03/17 04:45 White Blood Count 13.5 K/UL (4.8-10.8) H Red Blood Count 4.09 M/UL (4.70-6.10) L Hemoglobin 13.1 G/DL (14.2-18.0) L Hematocrit 38.3 % (42.0-52.0) L Mean Corpuscular Volume 93 FL (80-99) Mean Corpuscular Hemoglobin 32.1 PG (27.0-31.0) H Mean Corpuscular Hemoglobin Concent 34.3 G/DL (32.0-36.0) Red Cell Distribution Width 12.8 % (11.6-14.8) Platelet Count 118 K/UL (150-450) L Mean Platelet Volume 10.7 FL (6.5-10.1) H Neutrophils (%) (Auto) 77.8 % (45.0-75.0) H Lymphocytes (%) (Auto) 11.5 % (20.0-45.0) L Monocytes (%) (Auto) 8.4 % (1.0-10.0) Eosinophils (%) (Auto) 0.9 % (0.0-3.0) Basophils (%) (Auto) 1.4 % (0.0-2.0) Sodium Level 138 mEQ/L (135-145) Potassium Level 3.4 mEQ/L (3.4-4.9) Chloride Level 102 mEQ/L (98-107) Carbon Dioxide Level 26 mEQ/L (20-30) Anion Gap 10 (5-15) Blood Urea Nitrogen 8 mg/dL (7-23) Creatinine 0.5 mg/dL (0.7-1.2) L Estimat Glomerular Filtration Rate > 60 mL/min (>60) Glucose Level 132 mg/dL (74-106) H Calcium Level 8.2 mg/dL (8.6-10.2) L Objective HEENT: Periorbital edema. Otherwise, pupils are equal, round, and reactive to light and accommodation. Extraocular muscles intact. Neck: No jugular venous distention. No carotid bruit. Carotid upstrokes 2+ bilaterally. CVS: Normal S1 and S2. Irregularly irregular rhythm. Tachycardic. No murmurs, gallops, or rubs. PMI is at fourth intercostal space in the midclavicular line. LUNGS: Clear to auscultation bilaterally. Abdomen: Soft, nontender, and nondistended. No hepatosplenomegaly. Positive bowel sounds. EXTREMITIES: No evidence of edema, clubbing, or cyanosis. GABRIELA PEACE Sep 03, 2017 22:12
[2017-09-04] VITALS: BP 154/85
[2017-09-04] MEDS: oxyCODONE 5mg IR tab ORAL PRN ×4 (00:34→10:48)
[2017-09-04 04:00] VITALS: BP 144/84
[2017-09-04] MEDS ORDERED: ALPRAZolam 0.5mg tab ORAL ONE (07:30)
[2017-09-04] MEDS: D5 1/2NS 1,000 ML IV SCH (07:45)
[2017-09-04 08:00] VITALS: BP 132/69
--- NOTE | 2017-09-04 08:01 | Consultation ---
DATE OF CONSULTATION: 09/03/2017 REFERRING PHYSICIAN: Ankit Hurt M.D. REASON FOR CONSULTATION: Acute pain consult. DR. ANKIT HURT: Thank you kindly for consulting me to evaluate and render an opinion as to how to proceed management acute postoperative lumbar spine pain after his lumbar spine instrumentation surgery. The patient is a 67-year-old gentleman with a work-related injury to his lumbar spine. He has multiple medical problems. He consulted me for acute pain consultation. I saw the patient at bedside and performed detailed history and physical examination with his female punch press operator at bedside assisting with the nurse. I spent over 75 minutes in consultation with an additional 30 minutes of medical records review. I reviewed multiple records from the patient's hospitalization records from [facility] where he had surgery on 09/01/2017. I reviewed multiple records from the surgery suite, nursing and pharmacy departments. I reviewed records from preoperative physician group, [facility] 08/25/2017 along with preoperative diagnostic testing. PAST MEDICAL HISTORY: 1. Acute postoperative lumbar spine pain status post lumbar spine fusion surgery with instrumentation by Dr. Ankit Hurt in August 2017. 2. Work-related injury. 3. Atrial fibrillation. 4. Obesity. 5. History chronic lumbar spine pain. 6. Hypertension. 7. Hypercholesterolemia. 8. Anxiety. PAST SURGICAL HISTORY: As above. Medications: At home, folic acid, prednisone, Arava, hydroxychloroquine, Xanax 1 mg at bedtime p.r.n., losartan, Crestor, Multaq, Bystolic and digoxin all for atrial fibrillation, Eliquis, Percocet 10/650 four times a day prescribed by Dr. Webb, chronically, eplerenone . ALLERGIES: No known drug allergies. Social History: The patient accompanied at the bedside by a female punch press operator. The patient denies marijuana usage. REVIEW OF SYSTEMS: Per attending physician. PHYSICAL EXAMINATION: GENERAL: Age 67. Height 175 centimeters and weight 92 kilograms. Vital Signs: Afebrile, pulse 79, respirations 20, blood pressure 123/70, and oxygen saturation 98% on room air. HEENT: Nasal cannula oxygen in place. The patient is lying in the left lateral decubitus position in moderate pain. The patient is moving all extremities x4. NEUROLOGIC: Detailed neurologic exam by Dr. Ankit Hurt. Cardiopulmonary: Detailed cardiopulmonary deferred to the hospitalist. Back: Lumbar spine shows painful by incision area with Hemovac drain holding suction. Laboratory And Diagnostic Data: From today, 09/03/2017 shows white count 14, hematocrit 38, and platelets 118. Sodium 138, potassium 3.4, chloride 102, bicarbonate 26, BUN 8, creatinine 0.5, glucose , and calcium 8.2. IMPRESSION: 1. Acute postoperative lumbar spine pain status post lumbar spine fusion surgery with instrumentation by Dr. Ankit Hurt in August 2017. 2. Work-related injury. 3. Atrial fibrillation. 4. Obesity. 5. History chronic lumbar spine pain. 6. Hypertension. 7. Hypercholesterolemia. 8. Anxiety. Treatment recommendations: I spoke in detail with the hospital pharmacist and adjusted his MATH INSTRUCTOR dosing to 0.3 mg demand dose with a 4-minute lock-out and . The patient has been using this dosing over the past 24 hours and now that he is more ambulatory, I would recommend to discontinue the MATH INSTRUCTOR and transition him on with oral oxycodone tablets. I have made available subcutaneous dose of Dilaudid for severe breakthrough pain and I also did encourage the patient use of Xanax as anxiolytic and antispasmodic agent. I did encourage aggressive use of incentive spirometry and encourage good pulmonary toilet. The patient has multiple comorbid medical conditions including atrial fibrillation and hypertension, I will defer this to the hospitalist team. The patient states that he already has plenty of pain medications at home and does have refills available from his chronic pain, doctor Dr. Webb, who has good access to in case he needs narcotic refills. We will see how the patient advances his diet and continue with the ambulation and monitor the output on his Hemovac drain, hospital discharge. Jose Armando Umana M.D. DR: CHANO JOB#: [id number] CC:
[2017-09-04] MEDS: Losartan 50mg tab ORAL SCH (08:12)
[2017-09-04] MEDS: Pericolace tab ORAL SCH (08:12)
[2017-09-04] MEDS ORDERED: HYDROmorphone 1mg/ml Carpuject SUBQ ONE (09:00)
[2017-09-04] MEDS ORDERED: ALPRAZolam 0.5mg tab ORAL PRN (10:30)
[2017-09-04] MEDS ORDERED: HYDROmorphone 1mg/ml Carpuject SUBQ PRN (11:00)
[2017-09-04 12:00] VITALS: BP 121/97
[2017-09-04] MEDS ORDERED: D5 1/2NS 1000ml IV ONE (13:04)
[2017-09-04] MEDS ORDERED: Tubing IV Secondary IV ONE (13:04)
--- NOTE | 2017-09-04 16:09 | General Progress Note ---
Assessment/Plan Status: stable Assessment/Plan 1. Lumbar spondylosis and prior surgery, status post revision surgery. 2. Atrial fibrillation, controlled rate. Continue with the current medications. 3. Hypertension, fairly controlled. 4. Anxiety and depression. 5. Leukocytosis: likely reactive, post op. no evidence of active infection 5. Gastrointestinal and deep vein thrombosis prophylaxis. Plan: hold anticoagulation for now Current surgical management per Dr Alan corral to dc from medical stand point Subjective ROS Limited/Unobtainable: No Constitutional: Reports: no symptoms HEENT: Reports: no symptoms Allergies: Coded Allergies: No Known Allergies (Unverified , 08/31/17) Objective Last 24 Hour Vital Signs Date Time Temp Pulse Resp B/P (MAP) Pulse Ox O2 Delivery O2 Flow Rate FiO2 09/04/17 12:00 78 09/04/17 12:00 97.9 86 20 121/97 97 Room Air 09/04/17 08:13 77 09/04/17 08:12 144/84 09/04/17 08:00 86 09/04/17 08:00 97.5 79 19 132/69 99 Room Air 09/04/17 04:00 77 09/04/17 04:00 97.2 73 20 144/84 97 Room Air 09/04/17 00:00 97.3 85 21 154/85 98 Room Air 09/04/17 00:00 85 09/03/17 21:03 143/96 09/03/17 20:00 76 09/03/17 20:00 97.7 74 21 143/96 96 Room Air Height (Feet): 5 Height (Inches): 9.00 Weight (Pounds): 203 General Appearance: no apparent distress, alert EENT: PERRL/EOMI Neck: supple Cardiovascular: normal rate Respiratory/Chest: lungs clear Abdomen: soft Extremities: non-tender Neurologic: electrologist II-XII grossly normal Ana Espitia MD Sep 04, 2017 16:09
--- NOTE | 2017-09-05 | Cardiology Progress Note ---
Assessment/Plan Assessment/Plan LATE NOTE ENTRY DATE OF PROGRESS NOTE: SEP 04, 2017 1. Atrial fibrillation, continue Bystolic and digoxin for rate control, anticoagulation still on hold. 2. History of hypertension, well controlled, continue Bystolic. 3. History of rheumatoid arthritis. 4 History of lumbar spine surgery, postoperative day #3. Subjective Subjective Atrial fibrillation at 77. Denies chest pain or SOB. Objective Last 24 Hour Vital Signs Date Time Temp Pulse Resp B/P (MAP) Pulse Ox O2 Delivery O2 Flow Rate FiO2 09/04/17 12:00 78 09/04/17 12:00 97.9 86 20 121/97 97 Room Air 09/04/17 08:13 77 09/04/17 08:12 144/84 09/04/17 08:00 86 09/04/17 08:00 97.5 79 19 132/69 99 Room Air 09/04/17 04:00 77 09/04/17 04:00 97.2 73 20 144/84 97 Room Air 2D Echo: LVEF ~55-60, Mod LVH, HUEY, Mild MR, RVSP 15 mmHg Objective HEENT: Periorbital edema. Otherwise, pupils are equal, round, and reactive to light and accommodation. Extraocular muscles intact. Neck: No jugular venous distention. No carotid bruit. Carotid upstrokes 2+ bilaterally. CVS: Normal S1 and S2. Irregularly irregular rhythm. Tachycardic. No murmurs, gallops, or rubs. PMI is at fourth intercostal space in the midclavicular line. LUNGS: Clear to auscultation bilaterally. Abdomen: Soft, nontender, and nondistended. No hepatosplenomegaly. Positive bowel sounds. EXTREMITIES: No evidence of edema, clubbing, or cyanosis. GABRIELA PEACE Sep 05, 2017 00:00
--- NOTE | 2017-09-07 08:28 | Cardiology Report ---
APPROVED REPORT EXAM: Two-dimensional and M-mode echocardiogram with Doppler and color Doppler. INDICATION Atrial Fibrillation M-Mode DIMENSIONS IVSd1.9 (0.7-1.1cm)Left Atrium (MM)4.8 (1.6-4.0cm) LVDd5.9 (3.5-5.6cm)Aortic Root3.0 (2.0-3.7cm) PWd1.1 (0.7-1.1cm)Aortic Cusp Exc.1.6 (1.5-2.0cm) IVSs2.3 cm LVDs3.6 (2.5-4.0cm) PWs2.3 cm Technically difficult study due to poor acoustical windows. Normal left ventricular chamber size, systolic function to extent visualized. Left ventricular ejection fraction grossly estimated to be normal. Study quality precludes accurate assessment of regional wall motion. Moderate left ventricular hypertrophy. Anterior Echo-free space, may be due to pericardial fat or effusion. Mild bi-atrial enlargement. Right ventricular chamber size is within normal limits. Focal aortic valve sclerosis with adequate cusp excursion. Thickened mitral valve leaflets with normal excursion. Mitral annulus and aortic root calcification. Pulmonic valve not well visualized. Normal tricuspid valve structure. IVC at normal size with physiologic collapse. A color flow and spectral Doppler study was performed and revealed: Trace aortic regurgitation. Mild mitral regurgitation. Can not determine left ventricular diastolic function by mitral diastolic velocities due to atrial fibrillation. Trace tricuspid regurgitation. Tricuspid systolic velocities suggests peak right ventricular systolic pressure of 15 mmHg.
--- NOTE | 2017-09-07 08:45 | Progress Note ---
DATE: 09/04/2017 ACUTE PAIN MANAGEMENT PHYSICIAN PROGRESS NOTE MEDICATIONS: Medication administration record reviewed. Medications include Cozaar, Shelbi-Colace, Plaquenil, Protonix, prednisone, digoxin, multivitamin, Bystolic. PRN medications include , Tylenol, milk of magnesia, Roxicodone, Dilaudid and Xanax. OBJECTIVE: VITAL SIGNS: Afebrile, pulse 73, blood pressure 144/84, respirations 20, and oxygen saturation 97% on room air. LABORATORY STUDIES: From today shows a stable white count of 13, hematocrit 38, and platelets 118,000. Sodium 138, potassium 3.4, chloride 102, bicarbonate 26, BUN 8, creatinine 0.5 and glucose 132. Calcium 8.2. I saw the patient at bedside with his . I have discussed case with the nurse, RN Flakito and surgeon, Dr. Hurt. The patient has been ambulating well. The Hemovac drain was removed yesterday afternoon by Dr. Hurt. The will be assisting with activities of daily living. The patient does have considerable anxiety still. He uses Xanax currently and will follow up with his outpatient doctor, , for narcotic refills. The patient did ask for a small prescription of Percocet tablets and I left a prescription for 25 tablets of extra Percocet 10/325 to bridge him over until he can can see in the outpatient clinic in 5 days. The patient has been receiving Dilaudid injections along with oxycodone here in the hospital. I would continue his current analgesic regimen. He has been compliant using incentive spirometer. He is afebrile and has normal vital signs. He denies any shortness breath or chest pain and his heart rate has been stable for over 24 hours. With increasing ambulation, he has been feeling better. He denies any shortness of breath. No chest pain. He is breathing comfortably. His blood pressure has been stable. He is passing positive flatus and advancing his diet without any nausea symptoms. He will use milk of magnesia at home as a rescue laxative. I agree with Dr. Hurt for discharge home this morning. Jose Armando Umana M.D. DR: CHANO JOB#: [id number] CC:
--- NOTE | 2017-09-07 15:38 | Discharge Summary ---
Discharge Summary Hospital Course Date of Admission Sep 01, 2017 at 05:48 Date of Discharge Sep 04, 2017 at 13:05 Admitting Diagnosis Severe spinal stenosis L4-L5 and to a lesser extent L3-L4. and instability at L4 -L5 with broad-based disk herniation, adjacent level arthrosis L4-L5 and to a lesser extent L3-L4. Reason for Hospitalization: elective surgery ROBERT Saha is a 67 year old male who was admitted on Sep 01, 2017 at 05:48 for Status Post L5-S1 Stenosis Consultations dr Espitia -IM dr Ratliff- cardio dr Downing - pain specialist Procedures s/p 09/01/[address] Hurt 1. Complete laminectomy of L3, L4, and superior half of L5 (redo status post prior laminectomy L5 partial). 2. Removal of hardware L5-S1. 3. Complete facetectomy L4-L5 right side and placement of interbody fusion device (TLIF) L4-L5. 4. Placement of structural graft/PEEK cage L4-L5 through a right-sided foraminal approach. 5. Posterior spinal segmental fixation and placement of hardware pedicle screws (spinal elements) L4, L5, and S1 bilaterally. 6. Use of local autograft for fusion as well as use of Signafuse. 7. Use of operating microscope. 8. Neurodiagnostic monitoring. 9. Pedicle screw stimulation. Hospital Course s/p surgery pain management pain specialist follows dressing C/D/I initially with drain, output monitored, eventually drain dc wound care neurovascular intact ambulated with PT fall precautions GI prophayxlis Becker dc, voided freely initially empiric abx, s/p Rx cardio follows rate control with BB and Digoxin hold anticoagulation resume when safe and cleared by surgeon BP management, currently normotensive, no need for anti-HTN regimen, likely due to narcotics tolerated diet stable for dc home fup with surgeon as outpatient as advised FINAL DIAGNOSIS Status post spinal fusion, anterior and posterior L5-S1. Severe spinal stenosis L4-L5 and to a lesser extent L3-L4. Instability at L4-L5 with broad-based disk herniation. Adjacent level arthrosis L4-L5 and to a lesser extent L3-L4. s/p complete laminectomy of L3, L4, and superior half of L5 (redo status post prior laminectomy L5 partial). s/p removal of hardware L5-S1. s/p complete facetectomy L4-L5 right side and placement of interbody fusion device (TLIF) L4-L5. s/p placement of structural graft/PEEK cage L4-L5 through a right-sided foraminal approach. s/p posterior spinal segmental fixation and placement of hardware pedicle screws (spinal elements) L4, L5, and S1 bilaterally. Atrial fibrillation History of hypertension History of rheumatoid arthritis. Discharge Medications Continued Medications: Alprazolam (Alprazolam) 1 Mg Tab.rapdis 1 MG ORAL PRN, TAB Calcium Carbonate (Calcium) 600 Mg Tablet 600 MG PO DAILY, TAB Digoxin* (Digoxin*) 250 Mcg Tablet 0.25 MG ORAL DAILY, TAB Dronedarone Hydrochloride (Multaq) 400 Mg Tablet 400 MG ORAL DAILY, TAB 0 Refills Eplerenone (Eplerenone) 25 Mg Tablet 25 MG PO DAILY, TAB Folic Acid (Folic Acid) 1 Mg Tablet 1 MG PO DAILY, TAB Hydroxychloroquine Sulfate (Hydroxychloroquine Sulfate) 200 Mg Tablet 200 MG PO BID, TAB Iron Bis-Gly/Fa/C/B12/Ca/Succ (Iron 21/7 Tablet) 1 Each Tablet 1 EACH PO DAILY, TAB Leflunomide (Leflunomide) 20 Mg Tablet 20 MG PO DAILY, TAB Losartan Potassium* (Losartan Potassium*) 50 Mg Tablet 50 MG ORAL TWICE A DAY, TAB Multivitamin/Iron/Folic Acid (Centrum Complete Multivit Tab) 1 Each Tablet 1 EACH PO DAILY, TAB Nebivolol Hcl (Bystolic*) 10 Mg Tablet 20 MG ORAL TWICE A DAY, TAB Oxycodone Hcl/Acetaminophen 10-325* (Oxycodone-Acetaminophen 10-325*) 1 Each Tablet 1 TAB ORAL Q4H PRN for For Pain, TAB Prednisone (Prednisone) 5 Mg Tab.ds.pk 5 MG PO DAILY, PACK Rosuvastatin Calcium (Crestor) 5 Mg Tablet 10 MG ORAL DAILY, TAB Vitamin B Complex (B Complex) 1 Each Tablet 1 TAB ORAL DAILY, #30 TAB 0 Refills Vitamin D (Vitamin D3) 400 Unit Tablet 400 UNITS ORAL DAILY, TAB Discharge Condition Upon Discharge: stable Discharge Disposition Patient was discharged to Home with Home Health(06) Discharge Diagnoses: Discharge Instructions Discharge Instructions Special Instructions I have been assigned to complete a D/C Summary on this account. I was not involved in the patient management Maya Masterson NP ([facility]) Sep 07, 2017 15:38
--- NOTE | 2017-09-10 23:16 | Cardiology Report ---
APPROVED REPORT EKG Measurement Heart [id number] Atrial fibrillation Left axis deviation Cannot rule out Inferior infarct, age undetermined Anterior infarct, age undetermined Abnormal ECG
== END 2017-09-04 13:05 | disposition home health service (06) | DRG 460 ==
LOC: SDSOVERFLO 05:48 → 2E 18:06
PROC: 0QP004Z Removal of Internal Fixation Device from Lumbar Vertebra, Open Approach (ICD-10-PCS; principal; 2017-09-01 08:00)
PROC: 01NB0ZZ Release Lumbar Nerve, Open Approach (ICD-10-PCS; principal; 2017-09-01 08:00)
PROC: 0SG00AJ Fusion of Lumbar Vertebral Joint with Interbody Fusion Device, Posterior Approach, Anterior Column, Open Approach (ICD-10-PCS; principal; 2017-09-01 08:00)
DX: M51.26 Other intervertebral disc displacement, lumbar region (principal); I48.91 Unspecified atrial fibrillation; I10 Essential (primary) hypertension; M53.2X6 Spinal instabilities, lumbar region; M48.061 Spinal stenosis, lumbar region without neurogenic claudication; M06.9 Rheumatoid arthritis, unspecified; E78.00 Pure hypercholesterolemia, unspecified; F41.9 Anxiety disorder, unspecified; Z79.01 Long term (current) use of anticoagulants; Z98.1 Arthrodesis status; M96.1 Postlaminectomy syndrome, not elsewhere classified; Y83.8 Other surgical procedures as the cause of abnormal reaction of the patient, or of later complication, without mention of misadventure at the time of the procedure
CPT/HCPCS: 36415; 72020; 76001; 80048; 80053; 84484; 85025; 86850; 86900; 86901; 87081; 93005; 93306; 94003; 94150; C9399; J2250; J2710